=== PATIENT | male | born 1975 | race Caucasian/White ===

== ENCOUNTER 2018-10-19 11:09 | Inpatient (IN) | payer OTHER ==
[2018-10-19 11:46] VITALS: BMI 28.3
--- NOTE | 2018-10-19 12:29 | HP ---
COWS - Scale Resting Pulse: 0= VT 80 or Below Sweatin= Chills/Flushing Restless Observation: 1= Difficult to Sit Still Pupil Size: 1= Pupils >than Normal Bone or Joint Aches: 2= Severe Diffuse Aches Runny Nose/ Eye Tearin= Runny Nose/Eyes GI Upset > 30mins: 2= Nausea/Diarrhea Tremor Observation: 2= Slight Tremor Visible Yawning Observation: 1= 1-2x During Session Anxiety or Irritability: 2=Irritable/Anxious Goose Flesh Skin: 0=Smooth Skin COWS Score: 14 CIWA Score - Admission Criteria [facility] Guidelines: Admission for Medically Managed Detox: Requires at least one of the followin. CIWA greater than 12 2. Seizures within the past 24 hours 3. Delirium tremens within the past 24 hours 4. Hallucinations within the past 24 hours 5. Acute intervention needed for co occurring medical disorder 6. Acute intervention needed for co occurring psychiatric disorder 7. Severe withdrawal that cannot be handled at a lower level of care (continued vomiting, continued diarrhea, abnormal vital signs) requiring intravenous medication and/or fluids 8. Admission ROS [facility] Chief Complaint: i need help to stop using oxycodone Allergies/Adverse Reactions: Allergies Allergy/AdvReac Type Severity Reaction Status Date / Time No Known Allergies Allergy Verified 10/19/18 12:21 History of Present Illness: this 43 years old male with oxycodone dependence prescribed,would like to stop, never been in detox before has prescription filled on 10/15/18 10 mgs 30 tablet but has been using more than prescribed nicotine dependence 30 cigarette/day chronic low back pain fx of right wrist in 2003 depression on prozac 10 mgs po dailly gerd on nexium - Ebola screening Have you traveled outside of the country in the last 21 days: No Have you had contact with anyone from an Ebola affected area: No Have you been sick,other than usual withdrawal symptoms: No Do you have a fever: No - Review of Systems Constitutional: Chills, Loss of Appetite, Malaise, Night Sweats, Changes in sleep, Weakness EENT: reports: Tearing, Nose Congestion Respiratory: reports: No Symptoms reported Cardiac: reports: No Symptoms Reported GI: reports: Nausea, Vomiting, Abdominal cramping : reports: No Symptoms Reported Musculoskeletal: reports: Back Pain, Joint Pain, Muscle Pain, Joint Stiffness Integumentary: reports: Dryness Neuro: reports: Headache, Tremors Endocrine: reports: No Symptoms Reported Hematology: reports: No Symptoms Reported Psychiatric: reports: No Sypmtoms Reported, Judgement Intact, Mood/Affect Appropiate, Orientated x3, Depressed Other Systems: Reviewed and Negative Patient History - Patient Medical History Hx Anemia: No Hx Asthma: No Hx Chronic Obstructive Pulmonary Disease (COPD): No Hx Cancer: No Hx Cardiac Disorders: No Hx Congestive Heart Failure: No Hx Hypertension: No Hx Hypercholesterolemia: No Hx Pacemaker: No HX Cerebrovascular Accident: No Hx Seizures: No Hx Dementia: No Hx Diabetes: No Hx Gastrointestinal Disorders: Yes (gerd) Hx Liver Disease: No Hx Genitourinary Disorders: No Hx Sexually Transmitted Disorders: No Hx Renal Disease (ESRD): No Hx Thyroid Disease: No Hx Human Immunodeficiency Virus (HIV): No (never been tested before) Hx Hepatitis C: No Hx Depression: Yes Hx Suicide Attempt: No Hx Bipolar Disorder: No Hx Schizophrenia: No Other Medical History: no suicidal,no homicidal - Patient Surgical History Past Surgical History: No - PPD History Previous Implant?: Yes Documented Results: Negative w/o proof Implanted On Prior [facility] Admission?: No PPD to be Administered?: Yes - Smoking Cessation Smoking history: Current every day smoker Have you smoked in the past 12 months: Yes Aproximately how many cigarettes per day: 30 Cigars Per Day: 0 Hx Chewing Tobacco Use: No Initiated information on smoking cessation: Yes 'Breaking Loose' booklet given: 10/19/18 - Substance & Tx. History Hx Alcohol Use: No Hx Substance Use: Yes Substance Use Type: Opiates Hx Substance Use Treatment: No - Substances Abused oxycodone Route: Oral Frequency: Daily Amount used: 50-70mg Age of first use: 33 Date of Last Use: 10/19/18 Family Disease History - Family Disease History Family History: Denies Admission Physical Exam S - Vital Signs Vital Signs: Vital Signs - 24 hr 10/19/18 11:43 Temperature 98.9 F Pulse Rate 84 Respiratory 20 Rate Blood Pressure 121/71 - Physical General Appearance: Yes: Moderate Distress, Tremorous, Irritable, Sweating HEENTM: Yes: Normal ENT Inspection, ARACELI, Pharynx Normal Respiratory: Yes: Lungs Clear, Normal Breath Sounds, No Respiratory Distress Neck: Yes: Within Normal Limits, Supple, Trachea in good position Breast: Yes: Within Normal Limits Cardiology: Yes: Within Normal Limits, Regular Rhythm, Regular Rate, S1, S2 Abdominal: Yes: Within Normal Limits, Normal Bowel Sounds, Non Tender, Flat, Soft Genitourinary: Yes: Within Normal Limits Back: Yes: Muscle Spasm Musculoskeletal: Yes: full range of Motion, Back pain, Muscle Pain Extremities: Yes: Within Normal Limits, Normal Range of Motion, Tremors Neurological: Yes: ham stripper II-XII NML intact, Fully Oriented, Alert, Motor Strength 5/5 Integumentary: Yes: Dry Lymphatic: Yes: Within Normal Limits - Diagnostic (1) Opioid dependence with withdrawal Status: Acute (2) Nicotine dependence Status: Chronic Qualifiers: Nicotine product type: cigarettes Substance use status: uncomplicated Qualified Code(s): F17.210 - Nicotine dependence, cigarettes, uncomplicated (3) Chronic low back pain Status: Acute Qualifiers: Back pain laterality: unspecified Sciatica presence: without sciatica Qualified Code(s): M54.5 - Low back pain; G89.29 - Other chronic pain (4) GERD (gastroesophageal reflux disease) Status: Chronic Qualifiers: Esophagitis presence: without esophagitis Qualified Code(s): K21.9 - Gastro -esophageal reflux disease without esophagitis Cleared for Admission S - Detox or Rehab [facility] Level of Care: Medically Managed Detox Regimen/Protocol: Methadone [facility] Breath Alcohol Content Breath Alcohol Content: 0 Urine Drug Screen - Results Drug Screen Negative: No Urine Drug Screen Results: OXY-Oxycodone Inpatient Rehab Admission - Rehab Decision to Admit Inpatient rehab admission?: No
[2018-10-19] MEDS ORDERED: ACETAMINOPHEN 325 MG TABLET (FP) PO PRN ×2 (14:26)
[2018-10-19] MEDS ORDERED: hydrOXYzine PAMOATE 25 MG CAPSULE (FP) PO PRN (14:26)
[2018-10-19] MEDS ORDERED: METHOCARBAMOL 500 MG TABLET PO PRN (14:26)
[2018-10-19] MEDS ORDERED: BISMUTH SUBSALICYLATE 524 MG/30 ML UD PO PRN (14:26)
[2018-10-19] MEDS ORDERED: MAG HYDROX/AL HYDROX/SIMETH 30 ML UNIT-DOSE CUP PO PRN (14:26)
[2018-10-19] MEDS ORDERED: MAGNESIUM CITRATE 300 ML BOTTLE PO PRN (14:26)
[2018-10-19] MEDS ORDERED: MELATONIN 5 MG TABLETS PO PRN (14:26)
[2018-10-19] MEDS ORDERED: MAGNESIUM HYDROX 2400MG/30ML ORAL SUSPENSION 30 ML CUP PO PRN (14:26)
[2018-10-19] MEDS ORDERED: cloNIDine HCL 0.1 MG TABLET PO PRN (14:26)
[2018-10-19] MEDS ORDERED: NICOTINE POLACRILEX 2 MG GUM BUC PRN (14:26)
[2018-10-19] MEDS ORDERED: IBUPROFEN 400 MG TABLET (FP) PO PRN (14:26)
[2018-10-19] MEDS ORDERED: MENTHOL/PHENOL 1 EACH UD MM PRN (14:26)
--- NOTE | 2018-10-19 14:26 | PN ---
[facility] Progress Note Note: with permission from patient,Dr.Richard Mcmahan called,spoke with Loraine Minaya RN,verbally told that he will not prescribe oxycodone to ths patient any more and aware that patient will be detoxed off oxycodone,letter will follow
[2018-10-19] MEDS ORDERED: diazePAM 5 MG TABLET PO PRN (14:30)
[2018-10-19] MEDS ORDERED: METHADONE HCL 10 MG TABLET (FOR DETOX USE ONLY) PO ONE ×2 (15:30→23:00)
[2018-10-19] MEDS ORDERED: NICOTINE 21 MG/24 HOURS TOPICAL PATCH TD SCH (15:30)
--- NOTE | 2018-10-19 17:23 | PN ---
S Progress Note (SOAP) Subjective: Patient states is leaving. 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 Patient states his will pick him up. Patient states is going to try to manage symptoms at home. Patient verbalizes an understanding of overdose risks and prevention.Patient agrees to accept Narcan kit in case of an opiate overdose/emergency. 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 Objective: A&O x3. Gait steady. Patient admitted today for detox. Currently no acute withdrawal symptoms. Was medicated at 1348 w/ Methadone 10 mg PO. Vital Signs 10/19/18 11:43 Temperature 98.9 F Pulse Rate 84 Respiratory 20 Rate Blood Pressure 121/71 Assessment: Opiate use disorder. Nicotine use disorder. Plan: Patient insists on leaving AMA despite encouragement. Patient to remain for observation, for 2- 3 hours post-methadone. Discussed overdose risks and prevention. Review Narcan use. Encourage nicotine cessation. Prescriptions to home pharmacy: 1) Narcan 4 mg NS 2) Ibuprofen 600 mg 3) Nicotine Patch 21 mg Nicotine gum 2 mg 4) Compazine 10 mg
--- NOTE | 2018-10-19 17:34 | DS ---
[facility] Detox Discharge Summary Admission Date: 10/19/18 Discharge Date: 10/19/18 - History Present History: Opioid Dependence Additional Comments: Patient admitted in opioid withdrawal. Pertinent Past History: Hx LBP, GERD, nicotine use disorder. - Physical Exam Results Vital Signs: Vital Signs Temperature 98.9 F 10/19/18 11:43 Pulse Rate 84 10/19/18 11:43 Respiratory Rate 20 10/19/18 11:43 Blood Pressure 121/71 10/19/18 11:43 O2 Sat by Pulse Oximetry (%) Pertinent Admission Physical Exam Findings: Patient w/ dependency on oxycodone admitted for detox. Vital Signs - 24 hr 10/19/18 10/19/18 11:43 17:46 Temperature 98.9 F 98.1 F Pulse Rate 84 94 H Respiratory 20 18 Rate Blood Pressure 121/71 128/89 Patient did not stay long enough for routine labs. - Treatment Hospital Course: Detox Protocol Followed (Detox protocol begun and patient received one dose of methadone 10 mg. Patient did not stay to receive additional treatment. Patient left unit alert and oriented w/ steady gait.) - Medication Discharge Medications: Ambulatory Orders Esomeprazole Magnesium 40 mg PO DAILY 10/19/18 Fluoxetine HCl [Prozac -] 10 mg PO DAILY 10/19/18 Ibuprofen [Ibu] 600 mg PO Q6H PRN #20 tablet 10/19/18 Naloxone HCl [Narcan] 4 mg NS PRN #2 spray 10/19/18 Nicotine Polacrilex [Nicotine Gum] 2 mg BC [id number] PRN 15 Days #120 gum 10/19/18 Nicotine [Nicotine Patch 21 mg/24 hr] 1 each TD DAILY #30 patch.td24 10/19/18 Prochlorperazine Maleate [Compazine -] 10 mg PO QID PRN #20 tablet 10/19/18 - Diagnosis (1) Chronic low back pain Status: Acute Qualifiers: Back pain laterality: unspecified Sciatica presence: without sciatica Qualified Code(s): M54.5 - Low back pain; G89.29 - Other chronic pain (2) GERD (gastroesophageal reflux disease) Status: Chronic Qualifiers: Esophagitis presence: without esophagitis Qualified Code(s): K21.9 - Gastro -esophageal reflux disease without esophagitis (3) Nicotine dependence Status: Chronic Qualifiers: Nicotine product type: cigarettes Substance use status: uncomplicated Qualified Code(s): F17.210 - Nicotine dependence, cigarettes, uncomplicated (4) Opioid dependence with withdrawal Status: Acute - AMA Did Patient Leave Against Medical Advice: Yes (Patient)
[2018-10-19 17:47] VITALS: BP 128/89; PULSE 94; TEMP 98.1
[2018-10-19] MEDS ORDERED: THIAMINE HCL 100 MG TABLET (FP) PO SCH (22:00)
[2018-10-20] MEDS ORDERED: FLUoxetine HCL 10 MG CAPSULE (FP) PO SCH (10:00)
[2018-10-20] MEDS ORDERED: PANTOPRAZOLE 40 MG TABLET (FP) PO SCH (10:00)
[2018-10-20] MEDS ORDERED: METHADONE HCL 10 MG TABLET (FOR DETOX USE ONLY) PO ONE (10:00)
[2018-10-20] MEDS ORDERED: PRENATAL VITAMINS W/ FOLIC ACID TABLET (FP) PO SCH (10:00)
[2018-10-21] MEDS ORDERED: METHADONE HCL 10 MG TABLET (FOR DETOX USE ONLY) PO ONE (10:00)
[2018-10-22] MEDS ORDERED: METHADONE HCL 10 MG TABLET (FOR DETOX USE ONLY) PO ONE (10:00)
[2018-10-23] MEDS ORDERED: METHADONE HCL 5 MG TABLET (FOR DETOX USE ONLY) PO ONE (06:00)
== END 2018-10-19 18:17 | disposition left against medical advice (07) | DRG 770 ==
LOC: YASAS 11:09 → Y3N 15:05
PROVIDERS: ADMIT Surgery; ATTEND Surgery
PROC: HZ2ZZZZ Detoxification Services for Substance Abuse Treatment (ICD-10-PCS; principal; 2018-10-19)
DX: F11.23 Opioid dependence with withdrawal (principal); F17.210 Nicotine dependence, cigarettes, uncomplicated; F32.9 Major depressive disorder, single episode, unspecified; K21.9 Gastro-esophageal reflux disease without esophagitis; M54.5 Low back pain; G89.29 Other chronic pain
CPT/HCPCS: 36415; 87389